=== PATIENT | female | born 1965 ===

== ENCOUNTER 2017-08-26 10:16 | Emergency (ER) | payer OTHER ==
[2017-08-26 10:29] VITALS: BMI 36.2
[2017-08-26 10:35] VITALS: RESP 18; TEMP 98.3
--- NOTE | 2017-08-26 11:17 | ED PDOC ---
Arrival/HPI - General Chief Complaint: Back Pain Time Seen by Provider: 08/26/17 11:12 Historian: Patient - History of Present Illness Narrative History of Present Illness (Text): 08/26/17 11:14 This 52 yo female with pmh hypothyroidism, HTN, presents to this ED c/o left upper back pain x 2 days. Patient stated pain started after lifting small boxes at work. Patient denies heavy lifting, trauma, fall, sob, cp, abdominal pain, wheezing, dizziness, or abnormal gait. Time/Duration: Other (see hpi) Quality: Aching Context: Work Past Medical History - Provider Review Nursing Documentation Reviewed: Yes - Infectious Disease Hx of Infectious Diseases: None - Cardiac Hx Hypertension: Yes - Psychiatric Hx Substance Use: No - Surgical History Hx Section: Yes (x1) Hx Cholecystectomy: Yes - Anesthesia Hx Anesthesia Reactions: No Hx Malignant Hyperthermia: No Family/Social History - Physician Review Nursing Documentation Reviewed: Yes Family/Social History: Other (noncontributory) Smoking Status: Never Smoked Hx Alcohol Use: No Hx Substance Use: No Allergies/Home Meds Allergies/Adverse Reactions: Allergies No Known Allergies Allergy (Verified 08/26/17 10:30) Review of Systems - Review of Systems Constitutional: Normal. absent: Fatigue, Weight Change, Fevers, Night Sweats Eyes: Normal ENT: Normal Respiratory: Normal. absent: SOB, Cough Cardiovascular: Normal Gastrointestinal: Normal Genitourinary Female: Normal. absent: Dysuria, Frequency, Hematuria, Vaginal Bleeding, Vaginal Discharge Musculoskeletal: Back Pain (chronic lower back pain. (+) left upper back pain) . absent: Neck Pain Skin: Normal. absent: Rash Neurological: Normal Endocrine: Normal Hemo/Lymphatic: Normal Psychiatric: Normal Physical Exam Vital Signs Temp Pulse Resp BP Pulse Ox 08/26/17 14:11 76 18 122/71 100 08/26/17 10:18 98.3 F 77 18 111/73 96 Temperature: Afebrile Blood Pressure: Normal Pulse: Regular Respiratory Rate: Normal Appearance: Positive for: Well-Appearing, Non-Toxic, Comfortable Pain Distress: None Mental Status: Positive for: Alert and Oriented X 3 - Systems Exam Head: Present: Atraumatic, Normocephalic Pupils: Present: PERRL Extroacular Muscles: Present: EOMI Conjunctiva: Present: Normal Mouth: Present: Moist Mucous Membranes Neck: Present: Normal Range of Motion Respiratory/Chest: Present: Clear to Auscultation, Good Air Exchange, Tender to Palpation ((+) mild tenderness left scapular region). No: Respiratory Distress , Accessory Muscle Use Cardiovascular: Present: Regular Rate and Rhythm, Normal S1, S2. No: Murmurs Abdomen: No: Tenderness, Distention, Peritoneal Signs Back: Present: Normal Inspection. No: CVA Tenderness, Midline Tenderness, Paraspinal Tenderness Upper Extremity: Present: Normal Inspection, Normal ROM, NORMAL PULSES, Neurovascularly Intact. No: Cyanosis, Edema Lower Extremity: Present: Normal Inspection, NORMAL PULSES, Normal ROM, Capillary Refill < 2 s. No: Edema Neurological: Present: GCS=15, CN II-XII Intact, Speech Normal Skin: Present: Warm, Dry, Normal Color. No: Rashes Psychiatric: Present: Alert, Oriented x 3, Normal Insight, Normal Concentration Medical Decision Making ED Course and Treatment: 08/26/17 13:54 FINDINGS: LUNGS: No active pulmonary disease. PLEURA: No significant pleural effusion identified. No pneumothorax apparent. CARDIOVASCULAR: Normal. OSSEOUS STRUCTURES: No significant abnormalities. VISUALIZED UPPER ABDOMEN: Normal. OTHER FINDINGS: None. IMPRESSION: No active disease. 08/26/17 13:56 Patient feels better. Patient was recommended to return to emergency if symptoms worsen. Re-evaluation Time: 13:55 Reassessment Condition: Re-examined, Improved - RAD Interpretation Radiology Orders: 08/26/17 11:12 CHEST TWO VIEWS (PA/LAT) [RAD] Stat - Medication Orders Current Medication Orders: Discontinued Medications Ketorolac Tromethamine (Toradol) 30 mg IM STAT STA Stop: 08/26/17 11:14 Last Admin: 08/26/17 11:38 Dose: 30 mg MAR Pain Assessment Document 08/26/17 11:38 EQ (Rec: 08/26/17 11:38 EQ [id number]) Pain Reassessment Is this a pain reassessment? No Sleep Is patient sleeping during reassessment? No Presence of Pain Presence of Pain Yes IM Administration Charges Document 08/26/17 11:38 EQ (Rec: 08/26/17 11:38 EQ [id number]) Injection Site MAR Injection Site Left Arm Charges for Administration # of IM Administrations 1 Disposition/Present on Arrival - Present on Arrival Any Indicators Present on Arrival: No History of DVT/PE: No History of Uncontrolled Diabetes: No Urinary Catheter: No History of Decub. Ulcer: No History Surgical Site Infection Following: None - Disposition Have Diagnosis and Disposition been Completed?: Yes Diagnosis: Muscle strain of scapular region Disposition: HOME/ ROUTINE Disposition Time: 13:55 Patient Plan: Discharge Condition: GOOD Discharge Instructions (ExitCare): Muscle Strain, Muscle Strain (DC) Additional Instructions: Call private doctor for follow up visit in 1-2 days. Take medication as instructed. Return to emergency if symptoms worsen. Prescriptions: Famotidine [Pepcid] 40 mg PO DAILY #10 tablet Naproxen 500 mg PO BID PRN #14 tab PRN Reason: Pain, Severe (8-10) Referrals: PCP,NO [Primary Care Provider] - Follow up with primary [facility] [Outside] - Follow up with primary [facility] [Outside] - Follow up with primary Forms: [facility] (Maori), WORK NOTE
--- NOTE | 2017-08-26 13:40 | RAD ---
HISTORY: left upper back pain during inspiration COMPARISON: No prior. TECHNIQUE: Chest PA and lateral FINDINGS: LUNGS: No active pulmonary disease. PLEURA: No significant pleural effusion identified. No pneumothorax apparent. CARDIOVASCULAR: Normal. OSSEOUS STRUCTURES: No significant abnormalities. VISUALIZED UPPER ABDOMEN: Normal. OTHER FINDINGS: None. IMPRESSION: No active disease.
[2017-08-26 14:11] VITALS: BP 122/71; PULSE 76; O2SAT 100
== END 2017-08-26 14:11 | disposition home or self-care (01) ==
LOC: ED 10:16
DX: S46.912A Strain of unspecified muscle, fascia and tendon at shoulder and upper arm level, left arm, initial encounter (principal); X50.0XXA Overexertion from strenuous movement or load, initial encounter; Y92.89 Other specified places as the place of occurrence of the external cause; Y99.8 Other external cause status
CPT/HCPCS: 71046; 81025; 96372; 99283; J1885

== ENCOUNTER 2017-12-25 12:01 | Emergency (ER) | payer OTHER ==
[2017-12-25 12:01] VITALS: BMI 36.2
[2017-12-25 12:08] VITALS: RESP 18
--- NOTE | 2017-12-25 12:31 | ED PDOC ---
Arrival/HPI - General Chief Complaint: Dental Pain Time Seen by Provider: 12/25/17 12:27 Historian: Patient - History of Present Illness Narrative History of Present Illness (Text): 12/25/17 12:28 52 year old female, with past medical history of hypertension, presents to the Emergency department complaining of upper left sided dental pain since yesterday. Patient informs worsening symptoms presenting to the Emergency department for medical evaluation. Patient informs taking motrin with mild improvement to symptoms. Patient denies any fall or trauma to the site. Patient denies any fevers, chills, headache, dizziness, chest pain, shortness of breath , dyspnea on exertion, cough, abdominal pain, nausea, vomiting, diarrhea, back pain, neck pain, or any other complaints. Time/Duration: 24 hours Symptom Onset: Gradual Symptom Course: Improving Quality: Aching Activities at Onset: Light Context: Home Past Medical History - Provider Review Nursing Documentation Reviewed: Yes - Travel History If Yes, travel location?: [facility] - Infectious Disease Hx of Infectious Diseases: None - Reproductive Menopause: Yes - Cardiac Hx Cardiac Disorders: Yes Hx Hypertension: Yes - Pulmonary Hx Respiratory Disorders: No - Neurological Hx Neurological Disorder: No - HEENT Hx HEENT Disorder: No - Renal Hx Renal Disorder: No - Endocrine/Metabolic Hx Endocrine Disorders: No Hx Hypothyroidism: Yes - Hematological/Oncological Hx Blood Disorders: No - Integumentary Hx Dermatological Disorder: No - Musculoskeletal/Rheumatological Hx Musculoskeletal Disorders: Yes Hx Back Pain: Yes - Gastrointestinal Hx Gastrointestinal Disorders: No - Genitourinary/Gynecological Hx Genitourinary Disorders: No - Psychiatric Hx Psychophysiologic Disorder: No Hx Substance Use: No - Surgical History Hx Section: Yes (x1) Hx Cholecystectomy: Yes - Anesthesia Hx Anesthesia: Yes Hx Anesthesia Reactions: No Hx Malignant Hyperthermia: No Family/Social History - Physician Review Nursing Documentation Reviewed: Yes Family/Social History: No Known Family HX Smoking Status: Never Smoked Hx Alcohol Use: No Hx Substance Use: No Allergies/Home Meds Allergies/Adverse Reactions: Allergies No Known Allergies Allergy (Verified 08/26/17 10:30) Home Medications: Home Meds Medication Instructions Recorded Confirmed Levothyroxine [Synthroid] 20 mcg PO DAILY 12/25/17 12/25/17 Review of Systems - Physician Review All systems were reviewed & negative as marked: Yes - Review of Systems Constitutional: absent: Fevers ENT: Other (upper left sided dental pain) Respiratory: absent: SOB, Cough Cardiovascular: absent: Chest Pain, RANGEL Gastrointestinal: absent: Abdominal Pain, Diarrhea, Nausea, Vomiting Musculoskeletal: absent: Back Pain, Neck Pain Neurological: absent: Headache, Dizziness Physical Exam - Physical Exam Narrative Physical Exam (Text): 12/25/17 12:20 Constitutional: No acute distress. Head: Normocephalic. Atraumatic. Eyes: PERRL. ENT: Moist mucous membranes. Missing teeth. No gum edema. Visible mild left cheek edema. Neck: Supple. Cardiovascular: Regular rate. Chest: No tenderness. Respiratory: Clear to auscultation bilaterally. GI: Soft. Nontender. Nondistended. Back: No CVA tenderness. Musculoskeletal: No tenderness or swelling of extremities. Skin: No rash. Neurologic: Alert, no focal deficit. Vital Signs Reviewed: Yes Vital Signs Temp Pulse Resp BP Pulse Ox 12/25/17 12:03 97.8 F 64 18 122/76 98 Temperature: Afebrile Blood Pressure: Normal Pulse: Regular Respiratory Rate: Normal Appearance: Positive for: Well-Appearing, Non-Toxic, Comfortable Pain Distress: None Mental Status: Positive for: Alert and Oriented X 3 Medical Decision Making ED Course and Treatment: 12/25/17 12:30 Impression: 52 year old female presents to the Emergency department complaining of left sided upper dental pain. Plan: -- Motrin -- Augmentin Follow up with Dentist tomorrow, given information about dental ER if dentist appointment not possible. - Scribe Statement The provider has reviewed the documentation as recorded by the Scribginger Fox. All medical record entries made by the Scribe were at my direction and personally dictated by me. I have reviewed the chart and agree that the record accurately reflects my personal performance of the history, physical exam, medical decision making, and the department course for this patient. I have also personally directed, reviewed, and agree with the discharge instructions and disposition. Disposition/Present on Arrival - Present on Arrival Any Indicators Present on Arrival: No History of DVT/PE: No History of Uncontrolled Diabetes: No Urinary Catheter: No History of Decub. Ulcer: No History Surgical Site Infection Following: None - Disposition Have Diagnosis and Disposition been Completed?: Yes Diagnosis: Tooth pain Disposition: HOME/ ROUTINE Disposition Time: 12:28 Patient Plan: Discharge Condition: STABLE Discharge Instructions (ExitCare): Dental Pain (DC) Prescriptions: Acetaminophen [Tylenol 325mg tab] 2 tab PO Q4H #30 tab Amoxicillin/Clavulanate [Augmentin 875 MG-125 MG] 1 tab PO BID #20 tab Famotidine [Pepcid] 1 tab PO BID #14 tab Ibuprofen [Motrin Tab] 1 tab PO Q8H #24 tab Forms: [facility] (Zimbabwean)
[2017-12-25 14:42] VITALS: BP 125/71; PULSE 70; TEMP 97.9; O2SAT 99
== END 2017-12-25 13:03 | disposition home or self-care (01) ==
LOC: ED 12:01
DX: K08.89 Other specified disorders of teeth and supporting structures (principal); I10 Essential (primary) hypertension; E03.9 Hypothyroidism, unspecified

== ENCOUNTER 2018-01-08 09:33 | Emergency (ER) | payer OTHER ==
[2018-01-08 09:33] VITALS: BMI 36.2
--- NOTE | 2018-01-08 10:15 | ED PDOC ---
Arrival/HPI - General Time Seen by Provider: 01/08/18 10:10 Historian: Patient - History of Present Illness Narrative History of Present Illness (Text): 01/08/18 10:11 52 y/o female, pmh including hypothyroidism, nkda, post menopausal, c/o generalized abdominal pain with nausea/vomiting started 1am this morning. Epigastric and LLQ region, associated with nausea and couple episodes of non- bilious/nonbloody vomiting, no flank pain, no night sweat, no palpitation, no dizziness, no change in vision, no coughing, no other medical or psychological complaints. Past Medical History - Provider Review Nursing Documentation Reviewed: Yes - Infectious Disease Hx of Infectious Diseases: None - Cardiac Hx Cardiac Disorders: Yes - Pulmonary Hx Respiratory Disorders: No - Neurological Hx Neurological Disorder: No - HEENT Hx HEENT Disorder: No - Renal Hx Renal Disorder: No - Endocrine/Metabolic Hx Endocrine Disorders: No Hx Hypothyroidism: Yes - Hematological/Oncological Hx Blood Disorders: No - Integumentary Hx Dermatological Disorder: No - Musculoskeletal/Rheumatological Hx Musculoskeletal Disorders: Yes Hx Back Pain: Yes - Gastrointestinal Hx Gastrointestinal Disorders: No - Genitourinary/Gynecological Hx Genitourinary Disorders: No - Psychiatric Hx Psychophysiologic Disorder: No Hx Substance Use: No - Surgical History Hx Section: Yes (x1) Hx Cholecystectomy: Yes - Anesthesia Hx Anesthesia: Yes Family/Social History - Physician Review Nursing Documentation Reviewed: Yes Family/Social History: Unknown Family HX Smoking Status: Never Smoked Hx Alcohol Use: No Hx Substance Use: No Allergies/Home Meds Allergies/Adverse Reactions: Allergies No Known Allergies Allergy (Verified 08/26/17 10:30) Home Medications: Home Meds Medication Instructions Recorded Confirmed Levothyroxine [Synthroid] 20 mcg PO DAILY 12/25/17 12/25/17 Review of Systems - Review of Systems Constitutional: absent: Fatigue, Fevers Eyes: absent: Vision Changes ENT: absent: Hearing Changes Respiratory: absent: SOB, Cough Cardiovascular: absent: Chest Pain Gastrointestinal: Abdominal Pain, Nausea, Vomiting. absent: Diarrhea Musculoskeletal: absent: Arthralgias, Back Pain Skin: absent: Rash, Pruritis Psychiatric: absent: Anxiety, Depression, Suicidal Ideation Physical Exam Vital Signs Reviewed: Yes Vital Signs Temp Pulse Resp BP Pulse Ox 01/08/18 14:23 67 18 123/73 99 01/08/18 12:00 65 17 125/80 100 01/08/18 10:13 97.9 F 66 17 112/62 100 Temperature: Afebrile Blood Pressure: Normal Pulse: Regular Respiratory Rate: Normal Appearance: Positive for: Well-Appearing, Non-Toxic, Comfortable Pain Distress: Mild Mental Status: Positive for: Alert and Oriented X 3 - Systems Exam Head: Present: Atraumatic, Normocephalic Pupils: Present: PERRL Extroacular Muscles: Present: EOMI Conjunctiva: Present: Normal Mouth: Present: Moist Mucous Membranes Neck: Present: Normal Range of Motion Respiratory/Chest: Present: Clear to Auscultation, Good Air Exchange. No: Respiratory Distress, Accessory Muscle Use Cardiovascular: Present: Regular Rate and Rhythm, Normal S1, S2. No: Murmurs Abdomen: Present: Tenderness (+epigastric and LLQ), Other (negative de luna signs , negative mcburney point tenderness). No: Distention, Peritoneal Signs, Rebound, Guarding, Hernias Back: Present: Normal Inspection Upper Extremity: Present: Normal Inspection. No: Cyanosis, Edema Lower Extremity: Present: Normal Inspection. No: Edema Neurological: Present: GCS=15, CN II-XII Intact, Speech Normal, Motor Func Grossly Intact, Gait Normal, Memory Normal Skin: Present: Warm, Dry, Normal Color. No: Rashes Psychiatric: Present: Alert, Oriented x 3, Normal Insight, Normal Concentration Medical Decision Making ED Course and Treatment: 01/08/18 10:18 -Labs/ua -EKG -CT abdomen and pelvis -IVF/pepcid/zofran -Observe and reassess 01/08/18 14:04 -EKG: NSR @ 65 BPM, no ST elevation or depression, no T wave inversion -CT abdomen and pelvis show There is a 4 mm nonobstructing stone in the right kidney. There is minimal perinephric stranding. No evidence of hydronephrosis No acute intra-abdominal findings -Labs show no acute findings except potassium level 5.1 (no tall T waves) and creatinine 1.6 with no previous comparison, wbc 13.4 -Lipase within normal limit -UA show no UTI -IVF ordered, will repeat CMP 01/08/18 16:58 -Repeat CMP show potassium 4.8 and creatinine 1.7, discussed the case with Dr. Raswant as we reviewed labs/radiology results and he recommend to discharge the patient home with nuclear logging engineer. Pt.'s pain and nausea/vomiting all resolved with IV pepcid and zofran, eating and drinking well. Abdominal is soft with no tenderness or guarding. -All labs and radiology results discussed with the patient in yoruba with a music composer, she verbally expressed understanding and would follow up with her own pmd and nuclear logging engineer. -Discharge home with pepcid, zofran, stay hydrated, avoid medications that's harmful to your kidney, follow up with your own pmd and nuclear logging engineer within2 days, return to the ER for any new or worsening signs or symptoms. - Lab Interpretations Lab Results: 01/08/18 10:30 01/08/18 16:13 Lab Results 01/08/18 16:13: Sodium 140, Potassium 4.7, Chloride 109 H, Carbon Dioxide 23, Anion Gap 12, BUN 21, Creatinine 1.7 H, Est GFR ( Amer) 38, Est GFR (Non- Af Amer) 31, Random Glucose 85, Calcium 8.6, Total Bilirubin 0.5, AST 29, ALT 18 , Alkaline Phosphatase 61, Total Protein 6.8, Albumin 4.0, Globulin 2.8, Albumin /Globulin Ratio 1.4 01/08/18 11:45: Sodium 140, Potassium 5.1 H, Chloride 105, Carbon Dioxide 26, Anion Gap 14, BUN 21, Creatinine 1.6 H, Est GFR ( Amer) 41, Est GFR (Non- Af Amer) 34, Random Glucose 92, Calcium 9.2, Magnesium 2.1, Total Bilirubin 0.5 , AST 29, ALT 15, Alkaline Phosphatase 59, Total Protein 7.2, Albumin 4.2, Globulin 3.0, Albumin/Globulin Ratio 1.4, Lipase 105 01/08/18 10:30: Urine Color Yellow, Urine Appearance Clear, Urine pH 6.0, Ur Specific [place] 1.010, Urine Protein Trace H, Urine Glucose (UA) Negative, Urine Ketones Negative, Urine Blood Negative, Urine Nitrate Negative, Urine Bilirubin Negative, Urine Urobilinogen 0.2, Ur Leukocyte Esterase Negative, Urine RBC 0 - 2, Urine WBC 0 - 2, Ur Epithelial Cells 6 - 8, Urine Bacteria Many 01/08/18 10:30: WBC 13.4 H D, RBC 4.31, Hgb 13.1, Hct 39.8, MCV 92.3, MCH 30.4, MCHC 32.9, RDW 12.9, Plt Count 294, MPV 10.2, Gran % 85.2 H, Lymph % (Auto) 10.6 L, Norton % (Auto) 3.7, Eos % (Auto) 0.2 L, Baso % (Auto) 0.3, Gran # 11.43 H , Lymph # (Auto) 1.4, Norton # (Auto) 0.5, Eos # (Auto) 0.0, Baso # (Auto) 0.04 I have reviewed the lab results: Yes - RAD Interpretation Radiology Orders: 01/08/18 10:20 ABD & PELVIS W/O PO OR IV CONT [CT] Stat Date of service: 01/08/2018 PROCEDURE: CT Abdomen and Pelvis without intravenous contrast HISTORY: generalized abdominal pain COMPARISON: None. TECHNIQUE: Technique. Contrast dose: Radiation dose: Total exam DLP = mGy-cm. This CT exam was performed using one or more of the following dose reduction techniques: Automated exposure control, adjustment of the mA and/or kV according to patient size, and/or use of iterative reconstruction technique. FINDINGS: LOWER THORAX: Unremarkable. LIVER: Unremarkable. No gross lesion or ductal dilatation. GALLBLADDER AND BILE DUCTS: Unremarkable. PANCREAS: Unremarkable. No gross lesion or ductal dilatation. SPLEEN: Unremarkable. ADRENALS: Unremarkable. No mass. KIDNEYS AND URETERS: There is a 4 mm nonobstructing stone in the right kidney. There is minimal perinephric stranding. No evidence of hydronephrosis VASCULATURE: Unremarkable. No aortic aneurysm. BOWEL: Unremarkable. No obstruction. No gross mural thickening. APPENDIX: Unremarkable. Normal appendix. PERITONEUM: Unremarkable. No free fluid. No free air. LYMPH NODES: Unremarkable. No enlarged lymph nodes. BLADDER: Unremarkable. REPRODUCTIVE: Unremarkable. BONES: No acute fracture. OTHER FINDINGS: None. IMPRESSION: There is a 4 mm nonobstructing stone in the right kidney. There is minimal perinephric stranding. No evidence of hydronephrosis No acute intra-abdominal findings Corporate Travel Expert: Radiologist - Medication Orders Current Medication Orders: Discontinued Medications Famotidine (Pepcid) 20 mg IVP STAT STA Stop: 01/08/18 10:21 Last Admin: 01/08/18 11:34 Dose: 20 mg IVP Administration Document 01/08/18 11:34 SF (Rec: 01/08/18 11:34 SF [email or web address]) Charges for Administration # of IVP Administrations 1 Sodium Chloride (Sodium Chloride 0.9%) 1,000 mls @ 999 mls/hr IV .Q1H1M STA Stop: 01/08/18 14:51 Last Admin: 01/08/18 13:59 Dose: 999 mls/hr eMAR Start Stop Document 01/08/18 13:59 SF (Rec: 01/08/18 14:00 SF [email or web address]) Intravenous Solution Start Date 01/08/18 Start Time 13:59 End Date 01/08/18 End time 15:00 Total Infusion Time 61 Ondansetron HCl (Zofran Inj) 4 mg IVP STAT STA Stop: 01/08/18 10:21 Last Admin: 01/08/18 11:34 Dose: 4 mg IVP Administration Document 01/08/18 11:34 SF (Rec: 01/08/18 11:34 [place] [id number]) Charges for Administration # of IVP Administrations 1 - PA / DIRECTOR CRITICAL CARE / Resident Statement MD/DO has reviewed & agrees with the documentation as recorded. Disposition/Present on Arrival - Present on Arrival Any Indicators Present on Arrival: No History of DVT/PE: No History of Uncontrolled Diabetes: No Urinary Catheter: No History of Decub. Ulcer: No History Surgical Site Infection Following: None - Disposition Have Diagnosis and Disposition been Completed?: Yes Diagnosis: Abdominal pain, Nausea and vomiting, Abnormal serum creatinine level Disposition: HOME/ ROUTINE Disposition Time: 17:03 Patient Plan: Discharge Condition: IMPROVED Additional Instructions: -Discharge home with pepcid, zofran, stay hydrated, avoid medications that's harmful to your kidney, follow up with your own pmd and nuclear logging engineer within2 days, return to the ER for any new or worsening signs or symptoms. Prescriptions: Famotidine [Pepcid] 20 mg PO BID #24 tab Ondansetron [Zofran] 4 mg PO Q8H PRN #10 tab PRN Reason: Nausea/Vomiting Referrals: Delma Gray MD [Staff Provider] - Follow up with primary Armida Brewer MD [Medical Doctor] - Follow up with primary [facility] [Outside] - Follow up with primary Forms: WORK NOTE
[2018-01-08] MEDS ORDERED: Iohexol 350 MG/100 ML VIAL ONE (10:27)
[2018-01-08 10:30] VITALS: TEMP 97.9
[2018-01-08 11:30] LABS: BASO # 0.04 K/mm3 (0.0-2.0); BASO % 0.3 % (0.0-3.0); EOS % 0.2 % (1.5-5.0); GRAN # 11.43 (1.4-6.5); GRAN % 85.2 % (50.0-68.0); HEMOGLOBIN 13.1 g/dL (12.0-16.0); LYMPH # 1.4 (1.2-3.4); LYMPH % 10.6 % (22.0-35.0); MEAN CELL VOLUME 92.3 fl (80.0-105.0); MEAN CORPUSCULAR HEMOGLOBIN 30.4 pg (25.0-35.0); MEAN CORPUSCULAR HGB CONC 32.9 g/dl (31.0-37.0); MEAN PLATELET VOLUME 10.2 fl (7.0-11.0); MONO # 0.5 (0.1-0.6); MONO % 3.7 % (1.0-6.0); RBC 4.31 10^6/uL (3.5-6.1); RED CELL DISTRIBUTION WIDTH 12.9 % (11.5-14.5); WHITE BLOOD COUNT 13.4 10^3/ul (4.5-11.0)
[2018-01-08 11:34] LABS: URINE BILIRUBIN NEGATIVE (NEGATIVE); URINE BLOOD NEGATIVE (NEGATIVE); URINE GLUCOSE (UA) NEGATIVE (NEGATIVE); URINE LEUKOCYTE ESTERASE NEGATIVE Leu/uL (NEGATIVE); URINE PROTEIN TRACE mg/dL (<30 mg/dL); URINE UROBILINOGEN 0.2 E.U./dL (<1 E.U./dL)
[2018-01-08 11:39] LABS: URINE APPEARANCE CLEAR (CLEAR); URINE COLOR YELLOW (YELLOW)
[2018-01-08 11:53] LABS: URINE BACTERIA MANY (NEG); URINE RBC 0 - 2 /hpf (0-2); URINE WBC 0 - 2 /hpf (0-6)
[2018-01-08 12:12] LABS: ALB/GLOB RATIO 1.4 (1.1-1.8); ALBUMIN 4.2 g/dL (3.0-4.8); CALCIUM 9.2 mg/dL (8.4-10.5)
--- NOTE | 2018-01-08 13:32 | CT ---
Date of service: 01/08/2018 PROCEDURE: CT Abdomen and Pelvis without intravenous contrast HISTORY: generalized abdominal pain COMPARISON: None. TECHNIQUE: Technique. Contrast dose: Radiation dose: Total exam DLP = mGy-cm. This CT exam was performed using one or more of the following dose reduction techniques: Automated exposure control, adjustment of the mA and/or kV according to patient size, and/or use of iterative reconstruction technique. FINDINGS: LOWER THORAX: Unremarkable. LIVER: Unremarkable. No gross lesion or ductal dilatation. GALLBLADDER AND BILE DUCTS: Unremarkable. PANCREAS: Unremarkable. No gross lesion or ductal dilatation. SPLEEN: Unremarkable. ADRENALS: Unremarkable. No mass. KIDNEYS AND URETERS: There is a 4 mm nonobstructing stone in the right kidney. There is minimal perinephric stranding. No evidence of hydronephrosis VASCULATURE: Unremarkable. No aortic aneurysm. BOWEL: Unremarkable. No obstruction. No gross mural thickening. APPENDIX: Unremarkable. Normal appendix. PERITONEUM: Unremarkable. No free fluid. No free air. LYMPH NODES: Unremarkable. No enlarged lymph nodes. BLADDER: Unremarkable. REPRODUCTIVE: Unremarkable. BONES: No acute fracture. OTHER FINDINGS: None. IMPRESSION: There is a 4 mm nonobstructing stone in the right kidney. There is minimal perinephric stranding. No evidence of hydronephrosis No acute intra-abdominal findings
[2018-01-08] MEDS ORDERED: Sodium Chloride 0.9% 1,000 ML IV STA (13:51)
[2018-01-08] MEDS ORDERED: Sod Polystyrene Sulf 15 gm/60 ml Susp PO STA (13:52)
[2018-01-08 16:40] LABS: ALB/GLOB RATIO 1.4 (1.1-1.8); CALCIUM 8.6 mg/dL (8.4-10.5)
[2018-01-08 17:02] VITALS: O2SAT 100
[2018-01-08 17:03] VITALS: BP 121/75; PULSE 70; RESP 16
--- NOTE | 2018-01-09 14:05 | CARD ---
APPROVED REPORT Date of service: 01/08/2018 EKG Measurement Heart [id number] <Conclusion> Normal sinus rhythm Moderate voltage criteria for LVH, may be normal variant Borderline ECG
== END 2018-01-08 17:18 | disposition home or self-care (01) ==
LOC: ED 09:33
DX: R10.9 Unspecified abdominal pain (principal); R11.2 Nausea with vomiting, unspecified; R79.89 Other specified abnormal findings of blood chemistry
CPT/HCPCS: 74176; 80053; 81001; 83690; 83735; 85025; 93005; 96361; 96374; 96375; 99285; J2405; J7030